=== PATIENT | male | born 1940 | race Caucasian/White ===

== ENCOUNTER 2021-02-22 21:27 | Emergency (ER) | payer MEDICARE, OTHER ==
[2021-02-22 21:47] LABS: #Basophils 0.1 thou/uL (0.0-0.2); #Eosinphils 0.1 thou/uL (0.0-0.7); #Lymphocytes 3.7 thou/uL (1.20-3.40); #Monocytes 0.7 thou/uL (0.11-0.59); #Neutrophils 3.9 thou/uL (1.40-6.50); %Basophils 1.4 % (0.0-1.0); %Eosinophils 0.7 % (0.0-10.0); %Lymphocytes 43.6 % (21.0-51.0); %Neutrophils 46.4 % (42.0-75.0); Mean Corpuscular HGB CONC 31.7 g/dL (32.0-36.0); Mean Corpuscular Hemoglobin 30.2 pg (27.0-31.0); Mean Corpuscular Volume 95.5 fL (78.0-98.0); Mean Platelet Volume 8.4 fL (7.4-10.4); Platelet Count 228 thou/uL (130-400); RBC Distribution Width 11.8 % (11.5-14.5); Red Blood Cell (RBC) Count 5.61 mill/uL (4.70-6.10); White Blood Cell (WBC) Count 8.4 thou/uL (4.8-10.8)
[2021-02-22] MEDS ORDERED: Ondansetron PF 4 MG/2 ML Vial ONE (21:49)
[2021-02-22] MEDS ORDERED: Morphine 4 MG/ML VIAL ONE (21:49)
[2021-02-22] MEDS ORDERED: Heparin 5,000 UNITS/ML VIAL ONE (21:50)
[2021-02-22] MEDS ORDERED: Heparin 25,000 units/D5W 500 ML ONE (21:50)
[2021-02-22] MEDS ORDERED: Sodium Chloride 0.9% 1,000 ML ONE (21:50)
[2021-02-22] MEDS ORDERED: Aspirin Chewable 81 MG TAB ONE (22:08)
[2021-02-22] MEDS ORDERED: Heparin 10,000 UNITS/ 10 ML VIAL ONE (22:13)
[2021-02-22] MEDS ORDERED: Lidocaine 1% (PF) 30 ML VIAL ONE (22:13)
[2021-02-22 22:32] LABS: ALT (SGPT) 17 U/L (8-55); AST (SGOT) 14 U/L (5-34); Albumin 4.1 g/dL (3.4-4.8); Alkaline Phosphatase 139 U/L (40-110); Anion Gap 17 mmol/L (10-20); BUN (Urea Nitrogen) 16 mg/dL (8.4-25.7); Bilirubin, Total 0.4 mg/dL (0.2-1.2); Calc. Creatinine Clearance 0 mL/min (70-130); Calcium 9.8 mg/dL (7.8-10.44); Carbon Dioxide 23 mmol/L (23-31); Chloride 96 mmol/L (98-107); Globulin 3.4 g/dL (2.4-3.5); Protein, Total 7.5 g/dL (5.8-8.1); Sodium 131 mmol/L (136-145)
[2021-02-22 22:39] LABS: Glucose 745 mg/dL (83-110)
== END 2021-02-22 22:12 | disposition short-term general hospital (02) ==
LOC: MADERS 21:27
DX: I21.3 ST elevation (STEMI) myocardial infarction of unspecified site (principal); R73.03 Prediabetes; E78.5 Hyperlipidemia, unspecified; E78.00 Pure hypercholesterolemia, unspecified; Z85.46 Personal history of malignant neoplasm of prostate
CPT/HCPCS: 71045; 80053; 83880; 84484; 85025; 93005; 96374; 96375; 96376; J1644; J2001; J2270; J2405; J7050